=== PATIENT | female | born 1985 | race Two or more races ===

== ENCOUNTER 2016-05-16 11:54 | Emergency (ER) | payer MEDICAID ==
[~2016-05-16] VITALS: Ht 152.4 cm; Wt 97.5 kg
[2016-05-16 12:39] VITALS: BP 140/89
== END 2016-05-16 14:27 | disposition home or self-care (01) ==
LOC: ER 11:54
DX: O26.893 Other specified pregnancy related conditions, third trimester (principal); Z34.93 Encounter for supervision of normal pregnancy, unspecified, third trimester
CPT/HCPCS: 36415; 84702

== ENCOUNTER 2020-09-07 16:40 | Observation (INO) | payer MEDICAID ==
[~2020-09-07 16:40] MED LIST: ACET-1156 PO; PRENCAP61 PO
[2020-09-07 19:35] LABS: Urine Bacteria FEW /hpf (None Seen); Urine Blood Negative /uL (Negative); Urine Mucus FEW (None Seen); Urine Specific Gravity 1.028 (1.001-1.035); Urine WBC <1 /hpf (0 - 5)
[2020-09-07 19:50] LABS: Alcohol, Urine < 3.0 mg/dL (0-10); Amphetamine Screen, Urine NEGATIVE (NEGATIVE); Barbiturate Scree,Urine NEGATIVE (NEGATIVE); Benzodiazephine Screen, Urine NEGATIVE (NEGATIVE); Cannabinoid Screen, Urine NEGATIVE (NEGATIVE); Cocaine Screen, Urine NEGATIVE (NEGATIVE); Opiate Scree,Urine NEGATIVE (NEGATIVE); Phencyclidine Screen, Urine NEGATIVE (NEGATIVE)
== END 2020-09-07 20:28 | disposition home or self-care (01) ==
LOC: LDRP 16:40
PROVIDERS: ADMIT Obstetrics & Gynecology; ATTEND Obstetrics & Gynecology
DX: O09.33 Supervision of pregnancy with insufficient antenatal care, third trimester (principal); O09.523 Supervision of elderly multigravida, third trimester; Z3A.35 35 weeks gestation of pregnancy
CPT/HCPCS: 59025; 76805; 80307; 81001; 81002; 94760; G0378

== ENCOUNTER 2021-04-07 14:53 | Emergency (ER) | payer MEDICAID ==
[~2021-04-07] VITALS: Ht 157.5 cm; Wt 90.7 kg
[2021-04-07] MEDS ORDERED: KETOROLAC TROMETH 60MG/2ML VIAL IM ONE (17:30)
[2021-04-07] MEDS ORDERED: BACL10TA PO (18:07)
[2021-04-07] MEDS ORDERED: IBUP800T27 PO (18:07)
[2021-04-07 18:16] VITALS: BP 133/58
== END 2021-04-07 18:22 | disposition home or self-care (01) ==
LOC: ER 14:53 → EDBD 14:53 → ER 18:22
DX: S16.1XXA Strain of muscle, fascia and tendon at neck level, initial encounter (principal); S39.012A Strain of muscle, fascia and tendon of lower back, initial encounter; I10 Essential (primary) hypertension; Z79.899 Other long term (current) drug therapy; X50.1XXA Overexertion from prolonged static or awkward postures, initial encounter; Y93.89 Activity, other specified; Y92.89 Other specified places as the place of occurrence of the external cause; Y99.8 Other external cause status
CPT/HCPCS: 93005; 96372; 99283; J1885